=== PATIENT | female | born 1990 | race African-American/Black ===

== ENCOUNTER 2016-07-25 18:39 | Emergency (ER) | payer OTHER ==
[~2016-07-25] VITALS: Ht 157.5 cm; Wt 89.8 kg
[2016-07-25 18:45] VITALS: BP 155/88
[2016-07-25] MEDS ORDERED: DIPHTH,PERTUSS(ACELL),TET TOX 0.5 ML DISP.SYRIN. VAX IM ONE (19:00)
[2016-07-25] MEDS ORDERED: HYDROCODONE/APAP 5/325MG TABLET. PO ONE (19:00)
[2016-07-25] MEDS ORDERED: silver sulfADIAZINE 1% CREAM 25GM TUBE. TP ONE (19:00)
[2016-07-25] MEDS ORDERED: SILV20CR4 TP (19:03)
[2016-07-25] MEDS ORDERED: HYDR-971 PO (19:03)
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
== END 2016-07-25 19:10 | disposition home or self-care (01) ==
LOC: ER 18:39
DX: T23.221A Burn of second degree of single right finger (nail) except thumb, initial encounter (principal); J45.909 Unspecified asthma, uncomplicated; X08.8XXA Exposure to other specified smoke, fire and flames, initial encounter; Y93.G3 Activity, cooking and baking; Y99.8 Other external cause status; Y92.89 Other specified places as the place of occurrence of the external cause
CPT/HCPCS: 16020; 90471; 90715; 99284-25

== ENCOUNTER → 2016-07-27 | Outpatient (CLI) | payer MEDICAID, OTHER ==
[2016-07-25 18:45] VITALS: BP 155/88
[~2016-07-27] MED LIST: HYDR-971 PO; SILV20CR4 TP
== END | disposition home or self-care (01) ==
LOC: PMGWOUND 08:46
PROVIDERS: ATTEND Emergency Medicine Undersea and Hyperbaric Medicine
DX: T23.221D Burn of second degree of single right finger (nail) except thumb, subsequent encounter (principal); S61.200D Unspecified open wound of right index finger without damage to nail, subsequent encounter; T31.0 Burns involving less than 10% of body surface; J45.909 Unspecified asthma, uncomplicated; X08.8XXD Exposure to other specified smoke, fire and flames, subsequent encounter
CPT/HCPCS: 97597

== ENCOUNTER → 2016-08-05 | Outpatient (CLI) | payer OTHER ==
[2016-07-25 18:45] VITALS: BP 155/88
== END | disposition home or self-care (01) ==
LOC: PMGWOUND 11:27
PROVIDERS: ATTEND Emergency Medicine Undersea and Hyperbaric Medicine
DX: T23.221D Burn of second degree of single right finger (nail) except thumb, subsequent encounter (principal); J45.909 Unspecified asthma, uncomplicated; X08.8XXD Exposure to other specified smoke, fire and flames, subsequent encounter
CPT/HCPCS: 99212

== ENCOUNTER → 2016-08-19 | Outpatient (CLI) | payer OTHER ==
[2016-07-25 18:45] VITALS: BP 155/88
== END | disposition home or self-care (01) ==
LOC: PMGWOUND 14:14
PROVIDERS: ATTEND Emergency Medicine Undersea and Hyperbaric Medicine
DX: T23.221D Burn of second degree of single right finger (nail) except thumb, subsequent encounter (principal); J45.909 Unspecified asthma, uncomplicated; X08.8XXD Exposure to other specified smoke, fire and flames, subsequent encounter
CPT/HCPCS: 99212

== ENCOUNTER → 2016-08-23 | Outpatient (CLI) | payer OTHER ==
[2016-07-25 18:45] VITALS: BP 155/88
--- NOTE | 2016-08-24 12:44 | SLEEP ---
DATE OF STUDY: 08/23/2016 ATTENDING PHYSICIAN: Dr. Jordy Strigner. The patient is a 26 years old who weighs 214 pounds with a BMI of 39. The patient has [id number] subjective hypersomnia with an Graham score of 16. Review of medications does not reveal any narcotics or sedatives. Sleep study was performed to rule out obstructive sleep apnea. During the night of study, the patient spent 418 minutes in bed and slept for 408 minutes with a sleep efficiency of 98%. Sleep latency was 3 minutes with a REM latency of 106 minutes. Overall sleep architecture showed normal stage I and stage II sleep, increased slow wave and normal REM sleep. During the night of study, the patient had 7 obstructive apneas, 10 hypopneas, and no mixed or central apneas. The patient's apnea-hypopnea index was only 3 per hour, supine index 3 per hour, and REM index was 7 per hour. PLMS were not seen. EKG monitoring revealed an average heart rate of 98 beats per minute. No sustained arrhythmias were observed. Review of nocturnal oximetry study revealed a mean oxygen saturation of 98%. The lowest that was recorded was 82%, which probably is an artifact. No clinically significant desaturations of less than 90% were observed otherwise. Due to low AHI, the patient did not meet the split-night criteria for CPAP initiation. IMPRESSION: 1. No clinically significant sleep disorder breathing. The patient's apnea-hypopnea index for the entire night was 3 per hour. 2. No clinically significant nocturnal hypoxia. 3. No clinically significant periodic limb movements of sleep. RECOMMENDATIONS: 1. The patient did not meet the split-night criteria for CPAP initiation. 2. The patient has [id number] subjective hypersomnia without any clinically significant sleep disorder breathing. The patient should be further evaluated to rule out any other disorders such as narcolepsy or idiopathic hypersomnia. Multiple sleep latency tests would be recommended if there is clinical suspicion for above disorders. 3. Avoid [employer] depressants. 4. Caution regarding driving until the patient's hypersomnia is resolved with above recommendation. 5. Weight loss is strongly advised. JUNITO KEVIN MD DR: PERRY/garth JOB#: [id number] / [id number] Richard Salvador MD
== END | disposition home or self-care (01) ==
LOC: SLPLAB 18:52
PROVIDERS: ATTEND Family Medicine
DX: R06.83 Snoring (principal); G47.33 Obstructive sleep apnea (adult) (pediatric)
CPT/HCPCS: 95810

== ENCOUNTER 2019-03-26 19:20 | Emergency (ER) | payer SELFPAY ==
[~2019-03-26] VITALS: Ht 157.5 cm; Wt 102.1 kg
[~2019-03-26 19:20] MED LIST changes: +HYDR-3164 PO; -HYDR-971 PO; +SILV20CR14 TP; -SILV20CR4 TP
[2019-03-26] MEDS ORDERED: DEXAMETHASONE 4 MG TABLET PO STA (20:32)
--- NOTE | 2019-03-26 20:41 | PHYS DOC ---
Past Medical History Past Medical History: Anemia, Asthma, Ovarian Cyst Past Surgical History: Other Additional Past Surgical Histo: (r) breast biopsy, (l) ovarian cyst removal Alcohol Use: None Drug Use: None Adult General Chief Complaint Chief Complaint: FLU SYMPTOM HPI HPI Patient is a 29 year old female who presents with body aches, chills, cough, nausea, vomiting, diarrhea, sore throat, runny nose, congestion. The patient states that this ongoing for 2 days. Patient states he is unable to keep fluids down. Patient rates her pain as 7 out of 10 in severity and sharp. Patient has a history of asthma and states she's also been wheezing. Review of Systems Review of Systems Constitutional: Reports fever or chills [] Eyes: Denies change in visual acuity, redness, or eye pain [] HENT: Reports nasal congestion and runny nose, sore throat [] Respiratory: Reports cough and shortness of breath [] Cardiovascular: No additional information not addressed in HPI [] GI: Reports nausea, vomiting, and diarrhea. Denies abdominal pain, bloody stools. : Denies dysuria or hematuria [] Musculoskeletal: Denies back pain or joint pain [] Integument: Denies rash or skin lesions [] Neurologic: Reports headache, Denies focal weakness or sensory changes [] Endocrine: Denies polyuria or polydipsia [] Complete systems were reviewed and found to be within normal limits, except as documented in this note. Current Medications Current Medications Current Medications Medications (Trade) Dose Ordered Sig/Ortega Start Time Stop Time Status Last Admin Dose Admin Albuterol/ Ipratropium (Duoneb) 3 ml 1X ONCE 03/26/19 20:45 03/26/19 20:46 DC 03/26/19 20:45 3 ML Dexamethasone (Decadron) 10 mg 1X STAT 03/26/19 20:32 03/26/19 20:33 Cancel Dexamethasone Sodium Phosphate (Decadron) 10 mg 1X ONCE 03/26/19 21:30 03/26/19 21:31 DC 03/26/19 21:02 10 MG Ondansetron HCl (Zofran) 4 mg 1X ONCE 03/26/19 21:00 03/26/19 21:01 DC 03/26/19 21:02 4 MG Sodium Chloride 500 ml @ 500 mls/hr 1X ONCE 03/26/19 21:00 03/26/19 21:59 DC 03/26/19 21:03 500 MLS/HR Allergies Allergies Allergies Coded Allergies Type Severity Reaction Last Updated Verified No Known Drug Allergies 08/08/14 No Physical Exam Physical Exam Constitutional: Well developed, well nourished, no acute distress, non-toxic appearance. [] HENT: Normocephalic, atraumatic, bilateral external ears normal, bilateral tympanic membranes are erythematous, oropharynx moist, no oral exudates, nose turbinates inflamed. Eyes: PERRLA, EOMI, conjunctiva normal, no discharge. [] Neck: Normal range of motion, no tenderness, supple, no stridor. [] Cardiovascular:Heart rate regular rhythm, no murmur [] Lungs & Thorax: Bilateral breath sounds have diffuse wheezing. Abdomen: Bowel sounds normal, soft, no tenderness, no masses, no pulsatile masses. [] Skin: Warm, dry, no erythema, no rash. [] Neurologic: Alert and oriented X 3, normal motor function, normal sensory function, no focal deficits noted. [] Psychologic: Affect normal, judgement normal, mood normal. [] Current Patient Data Vital Signs Vital Signs Date Time Temp Pulse Resp B/P (MAP) Pulse Ox O2 Delivery O2 Flow Rate FiO2 03/26/19 20:54 98 Room Air 03/26/19 19:44 99.4 117 24 130/82 (98) 99.4 Lab Values Laboratory Tests Test 03/26/19 20:50 03/26/19 21:27 White Blood Count 4.8 x10^3/uL (4.0-11.0) Red Blood Count 4.77 x10^6/uL (3.50-5.40) Hemoglobin 12.7 g/dL (12.0-15.5) Hematocrit 38.3 % (36.0-47.0) Mean Corpuscular Volume 80 fL (79-100) Mean Corpuscular Hemoglobin 27 pg (25-35) Mean Corpuscular Hemoglobin Concent 33 g/dL (31-37) Red Cell Distribution Width 15.0 % (11.5-14.5) H Platelet Count 268 x10^3/uL (140-400) Neutrophils (%) (Auto) 65 % (31-73) Lymphocytes (%) (Auto) 27 % (24-48) Monocytes (%) (Auto) 8 % (0-9) Eosinophils (%) (Auto) 1 % (0-3) Basophils (%) (Auto) 1 % (0-3) Neutrophils # (Auto) 3.1 x10^3/uL (1.8-7.7) Lymphocytes # (Auto) 1.3 x10^3/uL (1.0-4.8) Monocytes # (Auto) 0.4 x10^3/uL (0.0-1.1) Eosinophils # (Auto) 0.0 x10^3/uL (0.0-0.7) Basophils # (Auto) 0.0 x10^3/uL (0.0-0.2) Sodium Level 137 mmol/L (136-145) Potassium Level 4.6 mmol/L (3.5-5.1) Chloride Level 101 mmol/L (98-107) Carbon Dioxide Level 28 mmol/L (21-32) Anion Gap 8 (6-14) Blood Urea Nitrogen 7 mg/dL (7-20) Creatinine 0.8 mg/dL (0.6-1.0) Estimated GFR (Cockcroft-Gault) 101.2 BUN/Creatinine Ratio 9 (6-20) Glucose Level 97 mg/dL (70-99) Calcium Level 8.7 mg/dL (8.5-10.1) Total Bilirubin 0.5 mg/dL (0.2-1.0) Aspartate Amino Transferase (AST) 113 U/L (15-37) H Alanine Aminotransferase (ALT) 124 U/L (14-59) H Alkaline Phosphatase 80 U/L (46-116) Total Protein 7.8 g/dL (6.4-8.2) Albumin 3.7 g/dL (3.4-5.0) Albumin/Globulin Ratio 0.9 (1.0-1.7) L Influenza Type A Antigen Negative (NEGATIVE) Influenza Type B Antigen Positive (NEGATIVE) Laboratory Tests 03/26/19 20:50 Laboratory Tests 03/26/19 20:50 EKG EKG [] Radiology/Procedures Radiology/Procedures [] Course & Med Decision Making Course & Med Decision Making Pertinent Labs and Imaging studies reviewed. (See chart for details) Will get labs, chest x-ray, breathing treatment, Decadron, and fluids. Patient is not able to keep fluids down PO so will d/c with Zofran. Patient is Flu B pos. Chest x-ray is unremarkable. Will d/c home on Zofran. Rocky Disclaimer Rocky Disclaimer This electronic medical record was generated, in whole or in part, using a voice recognition dictation system. Departure Departure Impression: Primary Impression: Influenza B Referrals: NO PCP (PCP) Patient Instructions: Influenza A (H1N1) Additional Instructions: Thank you for visiting [facility]. We appreciate you trusting us with your care. If any additional problems come up don't hesitate to return to visit us. Please follow up with your primary care provider so they can plan additional care if needed and know about the problem that you had. If symptoms worsen come back to the Emergency Department. Any concerning symptoms that start such as chest pain, shortness of air, weakness or numbness on one side of the body, running high fevers or any other concerning symptoms return to the ER. Please drink plenty of fluids. If unable to keep fluids down please return to the ER. Please get plenty of rest. Please get wber-tbx-hjrywsx Zyrtec, and Mucinex help runny nose and congestion. Please take per label instructions. Please take Ibuprofen and Tylenol for fever. Give each medication every 6 hours as directed by the medication labels. In order to utilize the peak of the medications stagger the medications to where you are getting one of the medications every 3 hours. For example if you give Ibuprofen at 3 PM, you then give Tylenol at 6 PM and Ibuprofen again at 9 PM, and then Tylenol at midnight. Scripts Oseltamivir Phosphate (TAMIFLU) 75 Mg Capsule 75 MG PO BID for FLU for 5 Days, #10 TAB 0 Refills Prov: KALE SPARKS APRN 03/26/19 Ondansetron (ONDANSETRON ODT) 4 Mg Tab.rapdis 1 TAB PO PRN Q6-8HRS PRN for NAUSEA, #16 TAB Prov: KALE SPARKS APRN 03/26/19 KALE SPARKS APRN Mar 26, 2019 20:41
[2019-03-26] MEDS ORDERED: IPRATRPIUM/ALBUTEROL 0.5/2.5MG 3 ML NEBU. NEB ONE (20:45)
[2019-03-26 20:58] LABS: BASO % 1 % (0-3); EOS % 1 % (0-3); HEMATOCRIT 38.3 % (36.0-47.0); HEMOGLOBIN 12.7 g/dL (12.0-15.5); LYMPH # 1.3 x10^3/uL (1.0-4.8); LYMPH % 27 % (24-48); MEAN CORPUSCULAR HEMOGLOBIN 27 pg (25-35); MEAN CORPUSCULAR HGB CONC 33 g/dL (31-37); MEAN CORPUSCULAR VOLUME 80 fL (79-100); MONO # 0.4 x10^3/uL (0.0-1.1); MONO % 8 % (0-9); NEUT # 3.1 x10^3/uL (1.8-7.7); NEUT % 65 % (31-73); PLATELET COUNT 268 x10^3/uL (140-400); RED BLOOD COUNT 4.77 x10^6/uL (3.50-5.40); WHITE BLOOD COUNT 4.8 x10^3/uL (4.0-11.0)
[2019-03-26] MEDS ORDERED: IV NORMAL SALINE 500ML BAG 500 ML IV ONE (21:00)
[2019-03-26] MEDS ORDERED: ONDANSETRON PF 4 MG/2 ML VIAL. IV ONE (21:00)
[2019-03-26] MEDS ORDERED: IV NORMAL SALINE 1000ML BAG 1,000 ML IV ONE (21:00)
[2019-03-26 21:03] LABS: CALCIUM 8.7 mg/dL (8.5-10.1); CREATININE 0.8 mg/dL (0.6-1.0); GFR 101.2; POTASSIUM 4.6 mmol/L (3.5-5.1)
[2019-03-26 21:10] LABS: ALBUMIN 3.7 g/dL (3.4-5.0); ALBUMIN/GLOBULIN RATIO 0.9 (1.0-1.7); TOTAL BILIRUBIN 0.5 mg/dL (0.2-1.0); TOTAL PROTEIN 7.8 g/dL (6.4-8.2)
[2019-03-26] MEDS ORDERED: DEXAMETHASONE SOD PHOS 20 MG/5 ML VIAL. IV ONE (21:30)
[2019-03-26 22:16] LABS: INFLUENZA A PATIENT NEGATIVE (NEGATIVE); INFLUENZA B PATIENT POSITIVE (NEGATIVE)
[2019-03-26 23:09] VITALS: BP 111/60
[2019-03-26] MEDS ORDERED: ONDA4TAB12 PO (23:13)
[2019-03-26] MEDS ORDERED: OSEL75CA PO (23:14)
--- NOTE | 2019-03-27 02:55 | RAD ---
Exam: Chest 2 views INDICATION: Cough, fever today TECHNIQUE: Frontal and lateral views the chest Comparisons: None FINDINGS: The cardiomediastinal silhouette and pulmonary vessels are within normal limits. The lung and pleural spaces are clear. IMPRESSION: No acute cardiopulmonary process. Electronically signed by: Good Velasquez MD (03/27/2019 2:52 AM) [id number]
== END 2019-03-26 23:27 | disposition home or self-care (01) ==
LOC: ER 19:20
DX: J10.1 Influenza due to other identified influenza virus with other respiratory manifestations (principal); R11.2 Nausea with vomiting, unspecified; R19.7 Diarrhea, unspecified; R09.89 Other specified symptoms and signs involving the circulatory and respiratory systems; R50.9 Fever, unspecified; R09.81 Nasal congestion; J45.909 Unspecified asthma, uncomplicated; Z98.890 Other specified postprocedural states
CPT/HCPCS: 36415; 71046; 80053; 85025; 87804; 94640; 96361; 96374; 96375; 99285; J1100; J2405; J7030; J7040; J7620